=== PATIENT | male | born 1965 | race African-American/Black ===

== ENCOUNTER 2025-01-25 18:10 | Emergency (ER) | payer BC, MEDICAID ==
[~2025-01-25] VITALS: Ht 175.3 cm; Wt 78.0 kg
[2025-01-25 18:13] VITALS: O2SAT 99
[2025-01-25] MEDS: KETOROLAC 15MG/ML VIAL IM ONE (21:04)
[2025-01-25 21:22] VITALS: BP 127/61; PULSE 88; RESP 18; TEMP 36.8; O2SAT 99
[2025-01-25] MEDS ORDERED: LIDO-53 TP (21:30)
[2025-01-25] MEDS ORDERED: ACET-2708 MT (21:30)
[2025-01-25] MEDS: LIDOCAINE 5% PATCH TOP SCH (21:45)
== END 2025-01-25 21:45 | disposition home or self-care (01) ==
LOC: ER 18:10
DX: S20.219A Contusion of unspecified front wall of thorax, initial encounter (principal); F20.9 Schizophrenia, unspecified; F31.9 Bipolar disorder, unspecified; X58.XXXA Exposure to other specified factors, initial encounter; Y93.89 Activity, other specified; Y92.89 Other specified places as the place of occurrence of the external cause; Y99.8 Other external cause status
CPT/HCPCS: 99283; 71101; 96372; J1885